=== PATIENT | male | born 1965 | race African-American/Black ===

== ENCOUNTER 2016-07-17 20:19 | Emergency (ER) | payer BC, OTHER ==
[~2016-07-17 20:19] MED LIST: BACT2OIN TOP; CEPH500T PO; CYCL-36 PO; DICL50TA3 PO; DICL75 PO; LORTA5 PO
[2016-07-17 20:44] VITALS: BP 129/73; PULSE 137; RESP 16; TEMP 98.7; O2SAT 96
[2016-07-17] MEDS ORDERED: DIPHTH/TETANUS/ACEL PERTUSSIS (BOOSTER) 0.5 ML VIAL/PFS IM ONE (21:15)
[2016-07-17] MEDS ORDERED: SODIUM CHLORIDE 0.9% FLUSH 10 ML FLUSH IVF PRN (21:15)
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
[2016-07-17 21:23] LABS: BASOPHIL # 0.1 TH/MM3 (0-0.2); BASOPHIL % 0.6 % (0.0-2.0); EOSINOPHIL # 0.1 TH/MM3 (0-0.4); EOSINOPHIL % 0.8 % (0.0-4.0); HEMATOCRIT 42.7 % (39.0-51.0); HEMO FLAGS DIFF FINAL; LYMPH % 13.2 % (9.0-44.0); LYMPHOCYTE # 1.6 TH/MM3 (1.0-4.8); MEAN CELL VOLUME 90.5 FL (80.0-100.0); MEAN CORPUSCULAR HEMOGLOBIN 31.2 PG (27.0-34.0); MEAN CORPUSCULAR HGB CONC 34.5 % (32.0-36.0); MONO % 3.7 % (0.0-8.0); NEUT % 81.7 % (16.0-70.0); PLATELET COUNT 213 TH/MM3 (150-450); RED BLOOD COUNT 4.72 MIL/MM3 (4.50-5.90); WHITE BLOOD COUNT 12.3 TH/MM3 (4.0-11.0)
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
[2016-07-17 21:36] LABS: BICARBONATE 20.6 MEQ/L (21.0-32.0); POTASSIUM 3.8 MEQ/L (3.5-5.1)
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
[2016-07-17 22:00] VITALS: BP 128/76; PULSE 110; RESP 16; O2SAT 100
[2016-07-17 23:40] VITALS: BP 135/88
--- NOTE | 2016-07-18 07:37 | EKG ---
Date Performed: 07/17/2016 Time Performed: 21:47:14 PTAGE: 51 years EKG: SINUS TACHYCARDIA LEFT ANTERIOR FASCICULAR BLOCK ABNORMAL ECG NO PREVIOUS TRACING DOCTOR: Marek Lezama Interpretating Date/Time 07/18/2016 07:37:16
== END 2016-07-17 23:47 ==
LOC: NEPE 20:19
DX: S10.91XA Abrasion of unspecified part of neck, initial encounter (principal); S70.312A Abrasion, left thigh, initial encounter; S60.511A Abrasion of right hand, initial encounter; R94.31 Abnormal electrocardiogram [ECG] [EKG]; S00.83XA Contusion of other part of head, initial encounter; V43.52XA Car driver injured in collision with other type car in traffic accident, initial encounter; Y92.410 Unspecified street and highway as the place of occurrence of the external cause
CPT/HCPCS: 70450; 70486; 72125; 80048; 80307; 85025; 93005